=== PATIENT | male | born 1960 | race Caucasian/White ===

== ENCOUNTER → 2018-06-14 | Day surgery (SDC) | payer OTHER ==
[~2018-06-14] MED LIST: ASPIR-LOW81 MG PO; CRESTOR PF; FENTANYL CITRATE/PF 100MCG/2 ML INJ ONE; LIDOCAINE HCL 2% LOCAL INJ 5 ML SDV VIAL INJ ONE; MIDAZOLAM HCL 2 MG/2 ML VIAL ONE; NEXIUM40 MG PO; PROPOFOL IV EMULSION 10 MG/ML 20 ML VIAL ONE; VITAMIN D PO
[2018-06-14 08:30] VITALS: BP 128/90
--- NOTE | 2018-06-14 09:14 | Operative Report ---
DATE OF PROCEDURE: June 14, 2018 PROCEDURE PERFORMED: Colonoscopy. PREOPERATIVE DIAGNOSES 1. History of colon polyps. 2. History of hemorrhoids. 3. Hematochezia. POSTOPERATIVE DIAGNOSES 1. Three polyps in the proximal transverse colon. 2. Internal hemorrhoids present. PREOPERATIVE MEDICATIONS: Consisted of IV sedation administered under TIVA by anesthesia. Using the Olympus uberall video colonoscope, it was inserted in the patient's rectum and advanced without difficulty to the level of the cecum. The appendiceal opening was documented. We visualized the ileocecal valve, entered it, and viewed the terminal ileum, which was normal. The colonoscope was withdrawn back to the colon, and then withdrawn back to the area of the proximal transverse colon. There a 6 mm adenomatous polyp was seen and removed with electrical snare cautery. Next to it were 2 smaller 3 mm size polyps, which were removed with the hot biopsy forceps. No other polypoid lesions were seen. The colonoscope was withdrawn back down to the rectum. In the rectum, there was evidence of internal hemorrhoids and some mild irritation of the anal crypts. The colonoscope was withdrawn from the patient's rectum and the procedure was ended. In conclusion, we have findings of 3 polyps in the proximal transverse colon and internal hemorrhoids. Job#: [id number]
== END | disposition home or self-care (01) ==
LOC: OR 05:27
PROVIDERS: ATTEND Internal Medicine Gastroenterology
DX: K64.0 First degree hemorrhoids (principal); K63.5 Polyp of colon; K29.00 Acute gastritis without bleeding; K59.00 Constipation, unspecified; K58.9 Irritable bowel syndrome, unspecified; K82.8 Other specified diseases of gallbladder; Z88.1 Allergy status to other antibiotic agents; Z79.82 Long term (current) use of aspirin; Z80.0 Family history of malignant neoplasm of digestive organs
CPT/HCPCS: 45384; 45385; 93005; J2001; J2250; J2704

== ENCOUNTER → 2018-12-16 | Outpatient (CLI) | payer OTHER ==
[~2018-12-16] MED LIST changes: -FENTANYL CITRATE/PF 100MCG/2 ML INJ ONE; +IOPAMIDOL 370 MG/ML 200 ML INFUS..BTL INJ ONE; -LIDOCAINE HCL 2% LOCAL INJ 5 ML SDV VIAL INJ ONE; -MIDAZOLAM HCL 2 MG/2 ML VIAL ONE; -PROPOFOL IV EMULSION 10 MG/ML 20 ML VIAL ONE; +SODIUM CHLORIDE 0.9% 100 ML 100 ML ONE
--- NOTE | 2018-12-16 20:48 | Diagnostic Imaging Report ---
History:Dizziness, vertebral basilar insufficiency, Comparison studies: Intracranial CTA and 07/22/2012. MRIs of the neck and orbits on 07/18/2012. Technique: Axial images were obtained from the thoracic inlet. Coronal and sagittal images reconstructed from the axial data. Dose modulation, iterative reconstruction, and/or weight based adjustment of the mA/kV was utilized to reduce the radiation dose to as low as reasonably achievable. Intravenous contrast: 100 cc of Omnipaque 300. Findings: Aortic arch and major vessels: Patent. No abnormalities. Common carotid arteries: Patent. No abnormalities. Carotid bulbs: Non-stenosing calcified plaques bilaterally. Additional non-stenosing plaque at the origin of the left external carotid artery. Internal carotid arteries: Patent. No abnormalities. Vertebral arteries: Foci of calcification at the origin of the mildly dominant right vertebral artery. Otherwise, patent. No abnormalities. Basilar artery: Patent. No abnormalities. Posterior cerebral arteries: Patent. No abnormalities. Anatomical variants: Acom: Patent . Pcoms: Not visualized on the right, prominent on the left. Vertebral arteries: Left slightly dominant IMPRESSION: 1. Non-stenosing calcified plaques at the origin of the right vertebral artery and at the carotid bulbs. 2. Otherwise, no cervical or intracranial vascular abnormalities. 3. No changes compared to the intracranial CTA on 07/22/2012. 4. Unchanged, 1 cm nonenhancing, noncalcified focus anterior to the basilar artery which has not changed when compared to the previous CTA or with the MRIs on 07/18/2012 series 500, image 296, series 503, image 101, series 2, image 8). Working diagnosis an incidental dermoid or a neuroepithelial cyst. It is not an aneurysm. Signed by: Dr. Lenin Ryan M.D. on 12/16/2018 8:45 PM
== END ==
LOC: CT 14:44
PROVIDERS: ATTEND Psychiatry & Neurology Clinical Neurophysiology
DX: S09.90XA Unspecified injury of head, initial encounter (principal); M54.12 Radiculopathy, cervical region; G45.0 Vertebro-basilar artery syndrome
CPT/HCPCS: 70496; 70498

== ENCOUNTER → 2021-07-07 | Outpatient (CLI) | payer OTHER ==
[~2021-07-07] MED LIST changes: +DIATRIZOATE MEGL/DIATRIZOA SOD 30 ML BTL PO ONE; -SODIUM CHLORIDE 0.9% 100 ML 100 ML ONE; +SODIUM CHLORIDE 0.9% 50ML 50 ML ONE
== END ==
LOC: CT 07:40
PROVIDERS: ATTEND Internal Medicine Gastroenterology
DX: K21.00 Gastro-esophageal reflux disease with esophagitis, without bleeding (principal)
CPT/HCPCS: 74177; Q9967